=== PATIENT | male | born 1940 | race Caucasian/White ===

== ENCOUNTER → 2016-08-15 | Outpatient (CLI) | payer MEDICARE, MEDICAID ==
[~2016-08-15] MED LIST: ANTACID PO; ATIVAN; BENAZEPRIL; BENAZEPRIL10 MG PO; FERROUS SULFAT325 M4 PO; GLYBURIDE AND M1 TA4 PO; LOPRESSOR 225 MG/TAB PO; METFORMIN HYDR500 M1 PO; MICRONASE5 MG; NORCO 325 MG-51 TAB PO; NYSTATIN 100MU/M1 ML PO; NYSTATIN CREAM15 GM TP; ST. JOSEPH81 M2 PO; TIMOLOL MALEATE5 M1 OP; TOPROL XL25 MG PO; XANAX 0.5MG0.5 MG PO; ZANTAC PO; ZESTRIL; ZOCOR; ZOCOR40 M1 PO
== END ==
LOC: LAB 06:25
DX: E11.9 Type 2 diabetes mellitus without complications (principal); I10 Essential (primary) hypertension; I25.10 Atherosclerotic heart disease of native coronary artery without angina pectoris; Z12.5 Encounter for screening for malignant neoplasm of prostate; E78.2 Mixed hyperlipidemia; D50.8 Other iron deficiency anemias

== ENCOUNTER → 2016-08-30 | Outpatient (CLI) | payer MEDICARE, MEDICAID | LOC: LAB 06:21 | DX: R60.1 Generalized edema (principal); E11.8 Type 2 diabetes mellitus with unspecified complications; I10 Essential (primary) hypertension; E78.2 Mixed hyperlipidemia; I25.10 Atherosclerotic heart disease of native coronary artery without angina pectoris ==

== ENCOUNTER → 2016-10-25 | Outpatient (CLI) | payer MEDICARE, MEDICAID | LOC: LAB 07:37 | DX: E11.9 Type 2 diabetes mellitus without complications (principal); R60.1 Generalized edema; I10 Essential (primary) hypertension; E78.2 Mixed hyperlipidemia; I25.10 Atherosclerotic heart disease of native coronary artery without angina pectoris ==

== ENCOUNTER → 2016-10-30 | Outpatient (CLI) | payer MEDICARE, MEDICAID ==
[2015-06-30 17:36] VITALS: BP 89/48
== END ==
LOC: LAB 06:30
DX: R20.2 Paresthesia of skin (principal)

== ENCOUNTER → 2016-11-13 | Outpatient (CLI) | payer MEDICARE, MEDICAID ==
[2015-06-30 17:36] VITALS: BP 89/48
== END ==
LOC: LAB 06:15
DX: E11.9 Type 2 diabetes mellitus without complications (principal); I10 Essential (primary) hypertension

== ENCOUNTER → 2017-02-14 | Outpatient (CLI) | payer MEDICARE, MEDICAID ==
[2015-06-30 17:36] VITALS: BP 89/48
== END ==
LOC: LAB 06:15
DX: I25.10 Atherosclerotic heart disease of native coronary artery without angina pectoris (principal); E11.9 Type 2 diabetes mellitus without complications; D50.9 Iron deficiency anemia, unspecified; R41.3 Other amnesia

== ENCOUNTER → 2017-08-14 | Outpatient (CLI) | payer MEDICARE, MEDICAID ==
[2015-06-30 17:36] VITALS: BP 89/48
[2017-08-14 11:10] LABS: ALBUMIN 3.8 g/dL (3.5-5.0); BUN/CREATININE RATIO 17.3 (6.0-26.0); CALCIUM 8.9 mg/dL (8.4-10.2); POTASSIUM 4.7 mmol/L (3.6-5.0); TOTAL BILIRUBIN 0.8 mg/dL (0.2-1.3); TOTAL PROTEIN 6.5 g/dL (6.3-8.2)
[2017-08-14 11:13] LABS: EOS # 0.2 (0.04-0.40); EOS % 3.2 % (0.0-4.0); HEMATOCRIT 47.4 % (42.0-52.0); HEMOGLOBIN 15.3 g/dL (13.5-18.0); LYMPH# 1.1 (1.50-4.00); MEAN CELL VOLUME 100 fl (78-100); MEAN CORPUSCULAR HEMOGLOBIN 32 pg (27-31); MEAN CORPUSCULAR HGB CONC 32 g/dL (33-37); MEAN PLATELET VOLUME 9.9 fl (7.4-10.4); MONO # 0.5 (0.20-0.80); NEU # 4.1 (1.40-6.50); PLATELET COUNT 195 K/mm3 (130-400); RED BLOOD COUNT 4.73 M/mm3 (4.20-5.60); RED CELL DISTRIBUTION WIDTH 14.4 % (11.5-14.5)
[2017-08-14 12:32] LABS: ERYTHROCYTE SEDIMENTATION RATE 6 mm/hr (0-20)
[2017-08-14 23:25] LABS: TESTOSTERONE 131 ng/dL (221-716)
== END ==
LOC: LAB 10:41
PROVIDERS: Internal Medicine
DX: I25.10 Atherosclerotic heart disease of native coronary artery without angina pectoris (principal); E11.9 Type 2 diabetes mellitus without complications; D50.8 Other iron deficiency anemias; R41.3 Other amnesia; I10 Essential (primary) hypertension

== ENCOUNTER 2018-04-03 13:40 | Emergency (ER) | payer MEDICARE, MEDICAID ==
[2018-04-03] MEDS ORDERED: ALEVE220 M1 PO (14:33)
[2018-04-03] MEDS ORDERED: ARICEPT10 M1 PO (14:35)
[2018-04-03] MEDS ORDERED: COLACE100 M1 PO (14:36)
[2018-04-03] MEDS ORDERED: MEDI-FIRST CHE7.6 MG MM ×2 (14:36)
[2018-04-03 14:37] LABS: BASO # 0.1 (0.02-0.10); EOS # 0.2 (0.04-0.40); EOS % 3.2 % (0.0-4.0); HEMOGLOBIN 16.5 g/dL (13.5-18.0); LYMPH# 1.4 (1.50-4.00); MEAN CELL VOLUME 95 fl (78-100); MEAN CORPUSCULAR HEMOGLOBIN 33 pg (27-31); MEAN CORPUSCULAR HGB CONC 34 g/dL (33-37); MONO # 0.7 (0.20-0.80); NEU # 5.1 (1.40-6.50); PLATELET COUNT 210 K/mm3 (130-400); RED BLOOD COUNT 5.08 M/mm3 (4.20-5.60); RED CELL DISTRIBUTION WIDTH 15.1 % (11.5-14.5); WHITE BLOOD COUNT 7.5 K/mm3 (4.8-10.8)
[2018-04-03] MEDS ORDERED: CYANOCOBAL1000 MCG/1 IM (14:37)
[2018-04-03] MEDS ORDERED: LATANOPROST 2.2.5 ML OU (14:38)
[2018-04-03] MEDS ORDERED: METFORMIN ER500 MG PO (14:39)
[2018-04-03] MEDS ORDERED: ATORVASTATIN CA20 MG PO (14:39)
[2018-04-03] MEDS ORDERED: MILK OF MA400 MG/51 PO (14:41)
[2018-04-03] MEDS ORDERED: MIRALAX17 GM PO (14:42)
[2018-04-03] MEDS ORDERED: MEMANTINE HCL10 MG PO (14:42)
[2018-04-03] MEDS ORDERED: K-TAB20 MEQ PO (14:44)
[2018-04-03] MEDS ORDERED: VICTOZA 3-0.6 MG/0.1 SQ (14:45)
[2018-04-03] MEDS ORDERED: LISINOPRIL2.5 MG PO (14:46)
[2018-04-03] MEDS ORDERED: METOLAZONE5 MG PO (14:47)
[2018-04-03 14:49] LABS: CALCIUM 8.7 mg/dL (8.4-10.2); POTASSIUM 4.4 mmol/L (3.6-5.0)
[2018-04-03 15:05] LABS: URINE APPEARANCE CLEAR; URINE BILIRUBIN 1+ (NEGATIVE); URINE BLOOD NEGATIVE (NEGATIVE); URINE COLOR DARK YELLOW; URINE GLUCOSE NEGATIVE (NEGATIVE); URINE KETONE NEGATIVE (NEGATIVE); URINE LEUKOCYTE ESTERASE NEGATIVE (NEGATIVE); URINE MUCUS PRESENT (NOT PRESENT); URINE NITRATE NEGATIVE (NEGATIVE); URINE PROTEIN(semi-quant) 1+ mg/dL (NEGATIVE); URINE UROBILINOGEN NORMAL (NORMAL); URINE WBC 0-1 /hpf (0-3)
[2018-04-03 15:17] VITALS: BP 130/69
== END 2018-04-03 15:17 | disposition home or self-care (01) ==
LOC: ED 13:40
PROVIDERS: Physician Assistant
DX: R51 Headache (principal); E11.9 Type 2 diabetes mellitus without complications; I10 Essential (primary) hypertension; Z95.1 Presence of aortocoronary bypass graft; Z79.899 Other long term (current) drug therapy; Z79.84 Long term (current) use of oral hypoglycemic drugs; D50.9 Iron deficiency anemia, unspecified

== ENCOUNTER 2018-06-09 02:42 | Emergency (ER) | payer MEDICARE, MEDICAID ==
[~2018-06-09 02:42] MED LIST changes: +ALEVE220 M1 PO; +ARICEPT10 M1 PO; +ATORVASTATIN CA20 MG PO; +COLACE100 M1 PO; +CYANOCOBAL1000 MCG/1 IM; +K-TAB20 MEQ PO; +LATANOPROST 2.2.5 ML OU; +LISINOPRIL2.5 MG PO; +MEDI-FIRST CHE7.6 MG MM; +MEMANTINE HCL10 MG PO; +METFORMIN ER500 MG PO; +METOLAZONE5 MG PO; +MILK OF MA400 MG/51 PO; +MIRALAX17 GM PO; +VICTOZA 3-0.6 MG/0.1 SQ
[2018-06-09] MEDS ORDERED: AMARYL 2MG T2 MG/TAB PO (02:55)
[2018-06-09] MEDS ORDERED: BENADRYL 5050 MG/CAP PO (02:57)
[2018-06-09] MEDS ORDERED: NYSTATIN1 EAC2 MC (03:01)
[2018-06-09] MEDS ORDERED: TESTONE CI200 MG/1 M IM (03:02)
[2018-06-09] MEDS ORDERED: TYLENOL EXTRA500 M2 PO (03:04)
[2018-06-09] MEDS ORDERED: NORCO 325 MG-51 TA1 PO (03:44)
[2018-06-09 04:03] VITALS: BP 160/73
== END 2018-06-09 04:02 | disposition home or self-care (01) ==
LOC: ED 02:42
DX: M54.42 Lumbago with sciatica, left side (principal); I25.10 Atherosclerotic heart disease of native coronary artery without angina pectoris; I10 Essential (primary) hypertension; Z95.1 Presence of aortocoronary bypass graft; E11.9 Type 2 diabetes mellitus without complications; F03.90 Unspecified dementia, unspecified severity, without behavioral disturbance, psychotic disturbance, mood disturbance, and anxiety; D64.9 Anemia, unspecified; G47.30 Sleep apnea, unspecified; K27.9 Peptic ulcer, site unspecified, unspecified as acute or chronic, without hemorrhage or perforation; Z96.641 Presence of right artificial hip joint; Z96.652 Presence of left artificial knee joint; Z79.899 Other long term (current) drug therapy; Z79.84 Long term (current) use of oral hypoglycemic drugs
CPT/HCPCS: J1885

== ENCOUNTER 2018-06-14 15:05 | Emergency (ER) | payer MEDICARE, MEDICAID ==
[~2018-06-14 15:05] MED LIST changes: +AMARYL 2MG T2 MG/TAB PO; +BENADRYL 5050 MG/CAP PO; +NORCO 325 MG-51 TA1 PO; +NYSTATIN1 EAC2 TOP; +TESTONE CI200 MG/1 M IM; +TYLENOL EXTRA500 M2 PO
[2018-06-14 16:14] LABS: EOS # 0.1 (0.04-0.40); EOS % 1.2 % (0.0-4.0); HEMATOCRIT 48.5 % (42.0-52.0); HEMOGLOBIN 16.3 g/dL (13.5-18.0); LYMPH# 1.3 (1.50-4.00); MEAN CELL VOLUME 97 fl (78-100); MEAN CORPUSCULAR HEMOGLOBIN 33 pg (27-31); MEAN CORPUSCULAR HGB CONC 34 g/dL (33-37); MEAN PLATELET VOLUME 9.4 fl (7.4-10.4); NEU # 7.6 (1.40-6.50); PLATELET COUNT 259 K/mm3 (130-400); RED BLOOD COUNT 5.01 M/mm3 (4.20-5.60); RED CELL DISTRIBUTION WIDTH 14.7 % (11.5-14.5); WHITE BLOOD COUNT 10.1 K/mm3 (4.8-10.8)
[2018-06-14] MEDS ORDERED: NORCO 325 MG-51 TA1 PO (16:36)
[2018-06-14] MEDS ORDERED: TIMOLOL MALEATE5 ML OU (16:38)
[2018-06-14] MEDS ORDERED: TUMS REGULAR S500 MG PO (16:39)
[2018-06-14 18:33] LABS: URINE APPEARANCE CLEAR; URINE BILIRUBIN NEGATIVE (NEGATIVE); URINE BLOOD NEGATIVE (NEGATIVE); URINE COLOR YELLOW; URINE GLUCOSE NEGATIVE (NEGATIVE); URINE KETONE NEGATIVE (NEGATIVE); URINE LEUKOCYTE ESTERASE NEGATIVE (NEGATIVE); URINE NITRATE NEGATIVE (NEGATIVE); URINE PROTEIN(semi-quant) NEGATIVE (NEGATIVE); URINE UROBILINOGEN NORMAL (NORMAL); URINE WBC 0-1 /hpf (0-3)
[2018-06-14 19:43] VITALS: BP 130/64
== END 2018-06-14 19:20 | disposition home or self-care (01) ==
LOC: ED 15:05
PROVIDERS: Family Medicine
DX: M54.6 Pain in thoracic spine (principal); M54.5 Low back pain; M25.551 Pain in right hip; F03.90 Unspecified dementia, unspecified severity, without behavioral disturbance, psychotic disturbance, mood disturbance, and anxiety; F05 Delirium due to known physiological condition; E11.9 Type 2 diabetes mellitus without complications; I10 Essential (primary) hypertension; Z95.1 Presence of aortocoronary bypass graft; K21.9 Gastro-esophageal reflux disease without esophagitis; G47.30 Sleep apnea, unspecified; Z91.81 History of falling; Z79.899 Other long term (current) drug therapy; Z79.84 Long term (current) use of oral hypoglycemic drugs; Z87.11 Personal history of peptic ulcer disease

== ENCOUNTER → 2018-06-17 | Outpatient (CLI) | payer MEDICARE, MEDICAID ==
[2018-06-14 19:43] VITALS: BP 130/64
[~2018-06-17] MED LIST changes: +TIMOLOL MALEATE5 ML OU; +TUMS REGULAR S500 MG PO
== END ==
LOC: RAD 15:58
DX: M47.817 Spondylosis without myelopathy or radiculopathy, lumbosacral region (principal)

== ENCOUNTER → 2018-07-07 | Outpatient (CLI) | payer MEDICARE, MEDICAID ==
[2018-06-14 19:43] VITALS: BP 130/64
== END ==
LOC: RAD 16:00
DX: Z01.89 Encounter for other specified special examinations (principal); Z53.8 Procedure and treatment not carried out for other reasons

== ENCOUNTER → 2018-07-07 | Outpatient (CLI) | payer MEDICARE, MEDICAID ==
[2018-06-14 19:43] VITALS: BP 130/64
[2018-07-07 07:35] LABS: EOS # 0.2 (0.04-0.40); HEMATOCRIT 52.5 % (42.0-52.0); HEMOGLOBIN 17.8 g/dL (13.5-18.0); LYMPH# 1.5 (1.50-4.00); MEAN CELL VOLUME 100 fl (78-100); MEAN CORPUSCULAR HEMOGLOBIN 34 pg (27-31); MEAN CORPUSCULAR HGB CONC 34 g/dL (33-37); MEAN PLATELET VOLUME 9.6 fl (7.4-10.4); MONO # 0.8 (0.20-0.80); PLATELET COUNT 246 K/mm3 (130-400); RED BLOOD COUNT 5.26 M/mm3 (4.20-5.60); RED CELL DISTRIBUTION WIDTH 15.8 % (11.5-14.5); WHITE BLOOD COUNT 8.6 K/mm3 (4.8-10.8)
[2018-07-07 07:40] LABS: ALBUMIN 4.1 g/dL (3.5-5.0); CALCIUM 9.3 mg/dL (8.4-10.2); POTASSIUM 4.8 mmol/L (3.6-5.0); TOTAL BILIRUBIN 1.3 mg/dL (0.2-1.3); TOTAL PROTEIN 6.2 g/dL (6.3-8.2)
[2018-07-07 08:59] LABS: ERYTHROCYTE SEDIMENTATION RATE 1 mm/hr (0-20)
== END ==
LOC: LAB 06:15
PROVIDERS: Internal Medicine
DX: I25.10 Atherosclerotic heart disease of native coronary artery without angina pectoris (principal); E11.9 Type 2 diabetes mellitus without complications; D50.9 Iron deficiency anemia, unspecified; R41.3 Other amnesia; R20.2 Paresthesia of skin; R41.82 Altered mental status, unspecified

== ENCOUNTER → 2018-07-09 | Outpatient (CLI) | payer MEDICARE, MEDICAID ==
[2018-06-14 19:43] VITALS: BP 130/64
== END ==
LOC: RAD 07:02
DX: G31.9 Degenerative disease of nervous system, unspecified (principal); R41.82 Altered mental status, unspecified; R41.3 Other amnesia
CPT/HCPCS: A9585

== ENCOUNTER → 2018-07-10 | Outpatient (CLI) | payer MEDICARE, MEDICAID ==
[2018-06-14 19:43] VITALS: BP 130/64
== END ==
LOC: CARDREHAB 09:49
DX: G47.33 Obstructive sleep apnea (adult) (pediatric) (principal); R06.83 Snoring; G47.10 Hypersomnia, unspecified; R09.02 Hypoxemia; R53.83 Other fatigue; E66.9 Obesity, unspecified; Z68.38 Body mass index [BMI] 38.0-38.9, adult
CPT/HCPCS: G0399

== ENCOUNTER → 2018-09-29 | Outpatient (CLI) | payer MEDICARE, MEDICAID | LOC: LAB 10:11 | DX: E11.9 Type 2 diabetes mellitus without complications (principal); I25.10 Atherosclerotic heart disease of native coronary artery without angina pectoris; D50.9 Iron deficiency anemia, unspecified; R41.3 Other amnesia ==

== ENCOUNTER → 2019-01-12 | Outpatient (CLI) | payer MEDICARE, MEDICAID ==
[2019-01-12 11:12] LABS: EOS # 0.2 (0.04-0.40); EOS % 2.7 % (0.0-4.0); HEMOGLOBIN 15.2 g/dL (13.5-18.0); LYMPH# 1.3 (1.50-4.00); MEAN CELL VOLUME 99 fl (78-100); MEAN CORPUSCULAR HEMOGLOBIN 33 pg (27-31); MEAN CORPUSCULAR HGB CONC 33 g/dL (33-37); MEAN PLATELET VOLUME 8.9 fl (7.4-10.4); MONO # 0.6 (0.20-0.80); NEU # 5.3 (1.40-6.50); PLATELET COUNT 258 K/mm3 (130-400); RED BLOOD COUNT 4.66 M/mm3 (4.20-5.60); RED CELL DISTRIBUTION WIDTH 14.2 % (11.5-14.5); WHITE BLOOD COUNT 7.4 K/mm3 (4.8-10.8)
[2019-01-12 11:21] LABS: POTASSIUM 4.8 mmol/L (3.5-5.1)
[2019-01-12 11:22] LABS: ALBUMIN 3.8 g/dL (3.4-4.8)
[2019-01-12 11:23] LABS: CALCIUM 9.4 mg/dL (8.3-10.5)
[2019-01-12 11:24] LABS: TOTAL PROTEIN 6.7 g/dL (6.2-8.1)
[2019-01-12 11:26] LABS: TOTAL BILIRUBIN 0.7 mg/dL (0.2-1.2)
[2019-01-12 12:51] LABS: ERYTHROCYTE SEDIMENTATION RATE 14 mm/hr (0-20)
== END ==
LOC: LAB 10:51
PROVIDERS: Internal Medicine
DX: I25.10 Atherosclerotic heart disease of native coronary artery without angina pectoris (principal); E11.9 Type 2 diabetes mellitus without complications; D50.9 Iron deficiency anemia, unspecified; R41.3 Other amnesia

== ENCOUNTER → 2019-02-15 | Outpatient (CLI) | payer MEDICARE, MEDICAID ==
[~2019-02-15] MED LIST changes: +CEFDINIR300 MG PO; +LEXAPRO 10MG10 MG PO; +MUCINEX 60600 MG/TA1 PO; +SEROQUEL 2525 MG/TAB PO; +VIBRAMYCIN HYC100 MG PO; +VIRTUSSIN A/C118 ML PO
[2019-02-15 09:39] LABS: URINE APPEARANCE CLEAR; URINE BILIRUBIN NEGATIVE (NEGATIVE); URINE BLOOD NEGATIVE (NEGATIVE); URINE COLOR YELLOW; URINE GLUCOSE NEGATIVE (NEGATIVE); URINE KETONE NEGATIVE (NEGATIVE); URINE LEUKOCYTE ESTERASE NEGATIVE (NEGATIVE); URINE NITRATE NEGATIVE (NEGATIVE); URINE PROTEIN(semi-quant) TRACE mg/dL (NEGATIVE); URINE UROBILINOGEN NORMAL (NORMAL); URINE WBC 0-1 /hpf (0-3)
== END ==
LOC: LAB 09:21
PROVIDERS: Family Medicine
DX: R41.0 Disorientation, unspecified (principal); R50.9 Fever, unspecified

== ENCOUNTER 2019-02-17 11:12 | Emergency (ER) | payer MEDICARE, MEDICAID ==
[~2019-02-17 11:12] MED LIST changes: -CEFDINIR300 MG PO; -LEXAPRO 10MG10 MG PO; -MUCINEX 60600 MG/TA1 PO; -SEROQUEL 2525 MG/TAB PO; -VIBRAMYCIN HYC100 MG PO; -VIRTUSSIN A/C118 ML PO
[2019-02-17 11:55] LABS: HEMATOCRIT 46.1 % (42.0-52.0); HEMOGLOBIN 15.1 g/dL (13.5-18.0); MEAN CELL VOLUME 99 fl (78-100); MEAN CORPUSCULAR HEMOGLOBIN 33 pg (27-31); MEAN CORPUSCULAR HGB CONC 33 g/dL (33-37); MEAN PLATELET VOLUME 9.1 fl (7.4-10.4); PLATELET COUNT 252 K/mm3 (130-400); RED BLOOD COUNT 4.64 M/mm3 (4.20-5.60); RED CELL DISTRIBUTION WIDTH 13.8 % (11.5-14.5); WHITE BLOOD COUNT 12.9 K/mm3 (4.8-10.8)
[2019-02-17 12:05] LABS: ALBUMIN 3.7 g/dL (3.4-4.8)
[2019-02-17 12:06] LABS: POTASSIUM 4.2 mmol/L (3.5-5.1)
[2019-02-17 12:07] LABS: CALCIUM 9.1 mg/dL (8.3-10.5)
[2019-02-17 12:08] LABS: TOTAL PROTEIN 6.6 g/dL (6.2-8.1)
[2019-02-17 12:09] LABS: BAND 1 % (0-10); LYMPHOCYTE 6 % (20-51); MONOCYTE 7 % (3-10); NEUTROPHILS 83 % (42-75)
[2019-02-17 12:10] LABS: TOTAL BILIRUBIN 1.1 mg/dL (0.2-1.2)
[2019-02-17] MEDS ORDERED: COLACE100 M1 PO (12:57)
[2019-02-17] MEDS ORDERED: LEXAPRO 10MG10 MG PO (12:59)
[2019-02-17] MEDS ORDERED: SEROQUEL 2525 MG/TAB PO (13:01)
[2019-02-17] MEDS ORDERED: VIRTUSSIN A/C118 ML PO (13:04)
[2019-02-17 14:38] VITALS: BP 105/69
[2019-02-17] MEDS ORDERED: CEFDINIR300 MG PO (14:45)
[2019-02-17] MEDS ORDERED: VIBRAMYCIN HYC100 MG PO (14:45)
[2019-02-17] MEDS ORDERED: MUCINEX 60600 MG/TA1 PO (14:48)
== END 2019-02-17 15:12 ==
LOC: ED 11:12
PROVIDERS: Nurse Practitioner Primary Care
DX: J90 Pleural effusion, not elsewhere classified (principal); J18.9 Pneumonia, unspecified organism; E11.9 Type 2 diabetes mellitus without complications; I25.10 Atherosclerotic heart disease of native coronary artery without angina pectoris; I10 Essential (primary) hypertension; K21.9 Gastro-esophageal reflux disease without esophagitis; D50.9 Iron deficiency anemia, unspecified; G47.33 Obstructive sleep apnea (adult) (pediatric); F03.90 Unspecified dementia, unspecified severity, without behavioral disturbance, psychotic disturbance, mood disturbance, and anxiety; F41.9 Anxiety disorder, unspecified; E23.0 Hypopituitarism; F17.200 Nicotine dependence, unspecified, uncomplicated; Z95.1 Presence of aortocoronary bypass graft; Z98.890 Other specified postprocedural states; Z90.89 Acquired absence of other organs; Z96.641 Presence of right artificial hip joint; Z96.652 Presence of left artificial knee joint; Z79.84 Long term (current) use of oral hypoglycemic drugs
CPT/HCPCS: J0696; J2405; J7030; Q9967

== ENCOUNTER → 2019-02-24 | Outpatient (CLI) | payer MEDICARE, MEDICAID ==
[2019-02-17 14:38] VITALS: BP 105/69
[~2019-02-24] MED LIST changes: +CEFDINIR300 MG PO; +LEXAPRO 10MG10 MG PO; +MUCINEX 60600 MG/TA1 PO; +SEROQUEL 2525 MG/TAB PO; +VIBRAMYCIN HYC100 MG PO; +VIRTUSSIN A/C118 ML PO
[2019-02-24 14:46] LABS: HEMATOCRIT 43.4 % (42.0-52.0); HEMOGLOBIN 13.8 g/dL (13.5-18.0); MEAN CELL VOLUME 99 fl (78-100); MEAN CORPUSCULAR HEMOGLOBIN 32 pg (27-31); MEAN CORPUSCULAR HGB CONC 32 g/dL (33-37); MEAN PLATELET VOLUME 9.2 fl (7.4-10.4); PLATELET COUNT 332 K/mm3 (130-400); RED BLOOD COUNT 4.37 M/mm3 (4.20-5.60)
[2019-02-24 14:55] LABS: ALBUMIN 3.3 g/dL (3.4-4.8)
[2019-02-24 14:56] LABS: POTASSIUM 4.1 mmol/L (3.5-5.1)
[2019-02-24 14:57] LABS: CALCIUM 9.3 mg/dL (8.3-10.5)
[2019-02-24 14:58] LABS: TOTAL PROTEIN 7.2 g/dL (6.2-8.1)
[2019-02-24 15:00] LABS: TOTAL BILIRUBIN 0.5 mg/dL (0.2-1.2)
[2019-02-24 15:27] LABS: LYMPHOCYTE 13 % (20-51); MONOCYTE 4 % (3-10); NEUTROPHILS 81 % (42-75)
== END ==
LOC: LAB 14:33
PROVIDERS: Family Medicine
DX: J18.9 Pneumonia, unspecified organism (principal); I10 Essential (primary) hypertension

== ENCOUNTER → 2019-04-14 | Outpatient (CLI) | payer MEDICARE, MEDICAID ==
[2019-04-14 11:17] LABS: EOS # 0.2 (0.04-0.40); EOS % 3.2 % (0.0-4.0); HEMATOCRIT 43.1 % (42.0-52.0); HEMOGLOBIN 14.4 g/dL (13.5-18.0); LYMPH# 1.2 (1.50-4.00); MEAN CELL VOLUME 97 fl (78-100); MEAN CORPUSCULAR HEMOGLOBIN 32 pg (27-31); MEAN CORPUSCULAR HGB CONC 33 g/dL (33-37); MEAN PLATELET VOLUME 9.3 fl (7.4-10.4); MONO # 0.6 (0.20-0.80); NEU # 4.2 (1.40-6.50); PLATELET COUNT 236 K/mm3 (130-400); RED BLOOD COUNT 4.46 M/mm3 (4.20-5.60); RED CELL DISTRIBUTION WIDTH 14.9 % (11.5-14.5); WHITE BLOOD COUNT 6.2 K/mm3 (4.8-10.8)
[2019-04-14 11:26] LABS: POTASSIUM 4.4 mmol/L (3.5-5.1)
[2019-04-14 11:27] LABS: CALCIUM 9.4 mg/dL (8.3-10.5)
[2019-04-14 11:28] LABS: TOTAL PROTEIN 6.9 g/dL (6.2-8.1)
[2019-04-14 11:30] LABS: TOTAL BILIRUBIN 0.8 mg/dL (0.2-1.2)
[2019-04-14 11:35] LABS: MAGNESIUM 1.76 mg/dL (1.60-2.60)
[2019-04-14 12:21] LABS: ERYTHROCYTE SEDIMENTATION RATE 11 mm/hr (0-20)
[2019-04-14 22:39] LABS: TESTOSTERONE 217 ng/dL (221-716)
== END ==
LOC: LAB 10:59
PROVIDERS: Internal Medicine
DX: Z12.5 Encounter for screening for malignant neoplasm of prostate (principal); Z12.11 Encounter for screening for malignant neoplasm of colon; D50.9 Iron deficiency anemia, unspecified; I10 Essential (primary) hypertension; E11.9 Type 2 diabetes mellitus without complications; E78.5 Hyperlipidemia, unspecified; E23.0 Hypopituitarism; R20.2 Paresthesia of skin

== ENCOUNTER → 2019-04-16 | Outpatient (CLI) | payer MEDICARE, MEDICAID | LOC: RAD 13:33 | DX: G46.0 Middle cerebral artery syndrome (principal) ==

== ENCOUNTER → 2019-04-20 | Outpatient (CLI) | payer MEDICARE, MEDICAID | LOC: VAS 13:34 | DX: G46.0 Middle cerebral artery syndrome (principal) ==

== ENCOUNTER 2019-06-06 07:05 | Emergency (ER) | payer MEDICARE, MEDICAID ==
[2019-06-06] MEDS ORDERED: BENADRYL (07:50)
[2019-06-06] MEDS ORDERED: RISPERIDONE0.5 M2 PO (07:53)
[2019-06-06 07:59] LABS: HEMATOCRIT 41.9 % (42.0-52.0); HEMOGLOBIN 13.8 g/dL (13.5-18.0); MEAN CELL VOLUME 98 fl (78-100); MEAN CORPUSCULAR HEMOGLOBIN 32 pg (27-31); MEAN CORPUSCULAR HGB CONC 33 g/dL (33-37); MEAN PLATELET VOLUME 9.5 fl (7.4-10.4); PLATELET COUNT 215 K/mm3 (130-400); RED BLOOD COUNT 4.29 M/mm3 (4.20-5.60); WHITE BLOOD COUNT 8.2 K/mm3 (4.8-10.8)
[2019-06-06 08:06] LABS: URINE APPEARANCE CLEAR; URINE COLOR YELLOW
[2019-06-06 08:07] LABS: URINE BILIRUBIN NEGATIVE (NEGATIVE); URINE BLOOD NEGATIVE (NEGATIVE); URINE GLUCOSE NEGATIVE (NEGATIVE); URINE KETONE NEGATIVE (NEGATIVE); URINE LEUKOCYTE ESTERASE NEGATIVE (NEGATIVE); URINE NITRATE NEGATIVE (NEGATIVE); URINE PROTEIN(semi-quant) NEGATIVE (NEGATIVE); URINE UROBILINOGEN NORMAL (NORMAL); URINE WBC 0-1 /hpf (0-3)
[2019-06-06 08:08] LABS: ALBUMIN 3.9 g/dL (3.4-4.8)
[2019-06-06 08:09] LABS: POTASSIUM 4.6 mmol/L (3.5-5.1)
[2019-06-06 08:10] LABS: CALCIUM 9.4 mg/dL (8.3-10.5)
[2019-06-06 08:11] LABS: TOTAL PROTEIN 6.4 g/dL (6.2-8.1)
[2019-06-06 08:12] LABS: LYMPHOCYTE 13 % (20-51); MONOCYTE 4 % (3-10); NEUTROPHILS 82 % (42-75)
[2019-06-06 09:32] VITALS: BP 128/68
== END 2019-06-06 09:20 | disposition home or self-care (01) ==
LOC: ED 07:05
PROVIDERS: Physician Assistant
DX: F03.90 Unspecified dementia, unspecified severity, without behavioral disturbance, psychotic disturbance, mood disturbance, and anxiety (principal); I10 Essential (primary) hypertension; E11.9 Type 2 diabetes mellitus without complications; I25.10 Atherosclerotic heart disease of native coronary artery without angina pectoris; F32.9 Major depressive disorder, single episode, unspecified; Z79.4 Long term (current) use of insulin; W19.XXXA Unspecified fall, initial encounter; Y92.129 Unspecified place in nursing home as the place of occurrence of the external cause

== ENCOUNTER → 2020-01-04 | Outpatient (CLI) | payer MEDICARE, MEDICAID ==
[~2020-01-04] MED LIST changes: +BENADRYL; +RISPERIDONE0.5 M2 PO
[2020-01-04 16:08] LABS: EOS # 0.2 (0.04-0.40); EOS % 2.6 % (0.0-4.0); HEMATOCRIT 44.4 % (42.0-52.0); HEMOGLOBIN 14.4 g/dL (13.5-18.0); LYMPH# 1.6 (1.50-4.00); MEAN CELL VOLUME 99 fl (78-100); MEAN CORPUSCULAR HEMOGLOBIN 32 pg (27-31); MEAN CORPUSCULAR HGB CONC 32 g/dL (33-37); MEAN PLATELET VOLUME 9.7 fl (7.4-10.4); MONO # 0.5 (0.20-0.80); NEU # 5.5 (1.40-6.50); PLATELET COUNT 240 K/mm3 (130-400); RED BLOOD COUNT 4.47 M/mm3 (4.20-5.60); RED CELL DISTRIBUTION WIDTH 14.4 % (11.5-14.5); WHITE BLOOD COUNT 7.9 K/mm3 (4.8-10.8)
[2020-01-04 16:11] LABS: ALBUMIN 3.9 g/dL (3.4-4.8)
[2020-01-04 16:13] LABS: TOTAL PROTEIN 6.2 g/dL (6.2-8.1)
[2020-01-04 16:15] LABS: TOTAL BILIRUBIN 1.1 mg/dL (0.2-1.2)
== END ==
LOC: LAB 13:26
PROVIDERS: Internal Medicine
DX: I25.10 Atherosclerotic heart disease of native coronary artery without angina pectoris (principal); E11.9 Type 2 diabetes mellitus without complications; D50.9 Iron deficiency anemia, unspecified; I10 Essential (primary) hypertension; R41.3 Other amnesia

== ENCOUNTER → 2020-03-25 | Outpatient (CLI) | payer MEDICARE, MEDICAID | LOC: LAB 10:09 | PROVIDERS: Internal Medicine | DX: I25.10 Atherosclerotic heart disease of native coronary artery without angina pectoris (principal); E11.9 Type 2 diabetes mellitus without complications; D50.8 Other iron deficiency anemias; R41.3 Other amnesia ==

== ENCOUNTER → 2020-04-07 | Outpatient (CLI) | payer MEDICARE, MEDICAID ==
[2020-04-07 14:28] LABS: URINE APPEARANCE CLEAR; URINE BILIRUBIN NEGATIVE (NEGATIVE); URINE BLOOD TRACE (NEGATIVE); URINE COLOR YELLOW; URINE GLUCOSE NEGATIVE (NEGATIVE); URINE KETONE NEGATIVE (NEGATIVE); URINE LEUKOCYTE ESTERASE TRACE (NEGATIVE); URINE NITRATE NEGATIVE (NEGATIVE); URINE PROTEIN(semi-quant) 1+ mg/dL (NEGATIVE); URINE UROBILINOGEN NORMAL (NORMAL)
[2020-04-07 14:29] LABS: URINE MUCUS PRESENT (NOT PRESENT)
== END ==
LOC: LAB 14:06
PROVIDERS: Internal Medicine
DX: R45.1 Restlessness and agitation (principal)

== ENCOUNTER → 2020-04-30 | Outpatient (CLI) | payer MEDICARE, MEDICAID ==
[2020-04-30 09:55] LABS: URINE APPEARANCE HAZY; URINE BILIRUBIN NEGATIVE (NEGATIVE); URINE BLOOD NEGATIVE (NEGATIVE); URINE COLOR YELLOW; URINE GLUCOSE NEGATIVE (NEGATIVE); URINE KETONE NEGATIVE (NEGATIVE); URINE LEUKOCYTE ESTERASE TRACE (NEGATIVE); URINE NITRATE NEGATIVE (NEGATIVE); URINE PROTEIN(semi-quant) TRACE mg/dL (NEGATIVE); URINE UROBILINOGEN NORMAL (NORMAL)
== END ==
LOC: LAB 07:40
PROVIDERS: Internal Medicine
DX: F03.91 Unspecified dementia, unspecified severity, with behavioral disturbance (principal)

== ENCOUNTER → 2020-09-23 | Outpatient (CLI) | payer MEDICARE, MEDICAID | LOC: RAD 16:47 | DX: M85.841 Other specified disorders of bone density and structure, right hand (principal); M85.842 Other specified disorders of bone density and structure, left hand ==

== ENCOUNTER → 2021-03-03 | Outpatient (CLI) | payer MEDICARE, MEDICAID ==
[2021-03-03 12:59] LABS: ALBUMIN 3.6 g/dL (3.4-4.8)
[2021-03-03 13:01] LABS: CALCIUM 8.8 mg/dL (8.3-10.5)
[2021-03-03 13:02] LABS: TOTAL PROTEIN 6.3 g/dL (6.2-8.1)
[2021-03-03 13:04] LABS: TOTAL BILIRUBIN 0.6 mg/dL (0.2-1.2)
== END ==
LOC: LAB 11:30
PROVIDERS: Internal Medicine
DX: E44.0 Moderate protein-calorie malnutrition (principal); F03.91 Unspecified dementia, unspecified severity, with behavioral disturbance